=== PATIENT | female | born 1960 | race Caucasian/White ===

== ENCOUNTER → 2016-09-30 | Outpatient (CLI) | payer BC ==
[~2016-09-30] VITALS: Ht 165.1 cm; Wt 86.2 kg
[~2016-09-30] MED LIST: ASPI81TA85 PO; ATOR1TAB19 PO; IBUP600T26 PO; LEVA12INH INH; LIDOCAINE 2% INJ 100 MG/5 ML SDV (FOR ANES.) As Ordered ONE; NS 1,000 ML IV SCH; PROPOFOL 200 MG/20 ML VIAL As Ordered ONE; SYMB16INH INH; TIOT18INH INH; TRIA37.53 PO; TRIAPOW43 XX; VITA50003 PO
--- NOTE | 2016-09-30 07:53 | ROOR ---
Patient Name: Maritza Young Procedure Date: 09/30/2016 7:36 AM Date of : 1960 Age: 56 Room: [facility] Gender: Female Note Status: Finalized Procedure: Colonoscopy Indications: Screening for colorectal malignant neoplasm Providers: Dung Cantrell Jr, MD Referring MD: Jess ALVAREZ MD Requesting Provider: Medicines: Propofol per Anesthesia Complications: No immediate complications. Procedure: Pre-Anesthesia Assessment: - Prior to the procedure, a History and Physical was performed, and patient medications and allergies were reviewed. The patient is competent. The risks and benefits of the procedure and the sedation options and risks were discussed with the patient. All questions were answered and informed consent was obtained. Patient identification and proposed procedure were verified by the physician and the nurse in the pre-procedure area and in the procedure room. Mental Status Examination: alert and oriented. Airway Examination: normal oropharyngeal airway and neck mobility. Respiratory Examination: clear to auscultation. CV Examination: normal. ASA Grade Assessment: II - A patient with mild systemic disease. After reviewing the risks and benefits, the patient was deemed in satisfactory condition to undergo the procedure. The anesthesia plan was to use moderate sedation / analgesia (conscious sedation). Immediately prior to administration of medications, the patient was re-assessed for adequacy to receive sedatives. The heart rate, respiratory rate, oxygen saturations, blood pressure, adequacy of pulmonary ventilation, and response to care were monitored throughout the procedure. The physical status of the patient was re-assessed after the procedure. The Colonoscope was introduced through the anus and advanced to the cecum, identified by appendiceal orifice and ileocecal valve. The colonoscopy was performed without difficulty. The patient tolerated the procedure well. The quality of the bowel preparation was adequate and good. Findings: The perianal and digital rectal examinations were normal. Pertinent negatives include normal sphincter tone, no palpable rectal lesions and no anal lesion or abnormality was detected. A few small and large-mouthed diverticula were found in the sigmoid colon. The rectum, recto-sigmoid colon, descending colon, transverse colon, ascending colon, cecum, appendiceal orifice and ileocecal valve appeared normal. Impression: - Diverticulosis in the sigmoid colon. - The rectum, recto-sigmoid colon, descending colon, transverse colon, ascending colon, cecum, appendiceal orifice and ileocecal valve are normal. - No specimens collected. Recommendation: - Discharge patient to home (ambulatory). - Repeat colonoscopy in 10 years for screening purposes. Dung Cantrell MD Dung Cantrell Jr, MD 09/30/2016 7:53:15 AM This report has been signed electronically. Number of Addenda: 0 Note Initiated On: 09/30/2016 7:36 AM Estimated Blood Loss: Estimated blood loss: none.
[2016-09-30 08:08] VITALS: BP 116/68
== END ==
LOC: M OPP 06:50
PROVIDERS: ATTEND Surgery
DX: Z12.11 Encounter for screening for malignant neoplasm of colon (principal); K57.30 Diverticulosis of large intestine without perforation or abscess without bleeding; I10 Essential (primary) hypertension; J44.9 Chronic obstructive pulmonary disease, unspecified; J45.909 Unspecified asthma, uncomplicated; M79.7 Fibromyalgia; M54.2 Cervicalgia; Z87.891 Personal history of nicotine dependence; Z79.82 Long term (current) use of aspirin; Z79.899 Other long term (current) drug therapy; Z88.2 Allergy status to sulfonamides; Z88.5 Allergy status to narcotic agent

== ENCOUNTER → 2016-12-28 | Outpatient (REF) | payer BC ==
[~2016-12-28] MED LIST changes: -LIDOCAINE 2% INJ 100 MG/5 ML SDV (FOR ANES.) As Ordered ONE; -NS 1,000 ML IV SCH; -PROPOFOL 200 MG/20 ML VIAL As Ordered ONE
[2016-12-29 13:58] LABS: PERCENT SATURATION 29.5 % (13.2-37.4)
[2016-12-29 14:06] LABS: FOLATE 12.1 NG/ML
== END ==
LOC: M LAB REF 12:47
PROVIDERS: ATTEND Internal Medicine
DX: D64.9 Anemia, unspecified (principal)

== ENCOUNTER 2017-04-10 10:50 | Emergency (ER) | payer BC ==
[~2017-04-10] VITALS: Ht 165.1 cm; Wt 84.1 kg
[~2017-04-10 10:50] MED LIST changes: +IBUP-1022 PO; -IBUP600T26 PO; +VITA1CAP40 PO; -VITA50003 PO
--- NOTE | 2017-04-10 11:45 | REP ---
Clinical: Pain. Technique: AP, lateral, bilateral oblique and sunrise views. Findings: No acute fracture or dislocation. Lateral view cannot exclude small suprapatellar effusion. [place] view demonstrates fraying along the anterior margin of the patella. Impression: Mild degenerative changes. Signed by Juanjose Lucas MD 04/10/2017 11:37 A
[2017-04-10] MEDS ORDERED: TYLE325T5 PO (12:16)
[2017-04-10 12:28] VITALS: BP 138/77
[2017-04-10] MEDS ORDERED: KETOROLAC 30 MG/ML VIAL (J1885) IM ONE (12:30)
== END 2017-04-10 12:39 | disposition home or self-care (01) ==
LOC: M ED 10:50
DX: M25.562 Pain in left knee (principal); J44.9 Chronic obstructive pulmonary disease, unspecified; I10 Essential (primary) hypertension; J45.909 Unspecified asthma, uncomplicated; E78.00 Pure hypercholesterolemia, unspecified; K44.9 Diaphragmatic hernia without obstruction or gangrene; K21.9 Gastro-esophageal reflux disease without esophagitis; M54.9 Dorsalgia, unspecified; R51 Headache; Z87.891 Personal history of nicotine dependence; Z88.5 Allergy status to narcotic agent; Z88.2 Allergy status to sulfonamides; Z79.82 Long term (current) use of aspirin; Z79.899 Other long term (current) drug therapy; Z79.51 Long term (current) use of inhaled steroids

== ENCOUNTER → 2017-04-20 | Outpatient (REF) | payer BC ==
[~2017-04-20] MED LIST changes: +TYLE325T5 PO
[2017-04-20 18:34] LABS: BASO % 0.8 % (0.0-1.0); EOS # 0.1 K/mm3 (0.0-0.50); EOS % 1.3 % (0.0-3.0); LARGE UNSTAINED CELL # 0.1 K/mm3 (0.0-0.4); LARGE UNSTAINED CELL % 1.4 % (0.0-4.0); MEAN CORPUSCULAR HEMOGLOBIN 31.4 pg (27.0-33.0); MEAN CORPUSCULAR HGB CONC 35.2 g/dl (32.0-36.5); MEAN CORPUSCULAR VOLUME 89.3 fl (80.0-96.0); MONO # 0.2 K/mm3 (0.0-0.8); MONO % 3.6 % (0.0-5.0); NEUTROPHILS # 2.2 K/mm3 (1.8-7.7); NEUTROPHILS % 48.8 % (36.0-66.0); PLATELET COUNT, AUTOMATED 260 k/mm3 (150-450); WHITE BLOOD COUNT 4.6 K/mm3 (4.0-10.0)
[2017-04-20 18:51] LABS: URIC ACID 4.3 MG/DL (2.6-6.0)
[2017-04-20 20:14] LABS: ERYTHROCYTE SEDIMENTATION RATE 22 mm/hr (0-30)
[2017-04-23 00:06] LABS: Lyme Disease IgG/IgM Antibodie <0.91 ISR (0.00-0.90); Lyme Disease IgM Ab Quantitati <0.80 index (0.00-0.79)
== END ==
LOC: M LABDRAW1 14:38
PROVIDERS: ATTEND Physician Assistant Surgical
DX: S83.92XD Sprain of unspecified site of left knee, subsequent encounter (principal); X58.XXXD Exposure to other specified factors, subsequent encounter; Y92.9 Unspecified place or not applicable; Y93.9 Activity, unspecified; Y99.9 Unspecified external cause status

== ENCOUNTER → 2017-08-22 | Outpatient (CLI) | payer BC | LOC: M SMT 14:33 | DX: J45.51 Severe persistent asthma with (acute) exacerbation (principal) ==

== ENCOUNTER → 2017-08-29 | Outpatient (CLI) | payer BC ==
[2017-08-29 20:53] LABS: BASO # 0.1 10^3/uL (0.0-0.2); BASO % 0.9 % (0.0-1.0); EOS # 0.1 10^3/uL (0.0-0.50); EOS % 2.1 % (0.0-3.0); HEMATOCRIT 37.7 % (36.0-47.0); HEMOGLOBIN 12.6 g/dl (12.0-16.0); IMMATURE GRANULOCYTE % 0.3 % (0-0); LYMPH # 2.1 10^3/uL (1.5-4.5); LYMPH % 36.6 % (24.0-44.0); MEAN CORPUSCULAR HEMOGLOBIN 30.4 pg (27.0-33.0); MEAN CORPUSCULAR HGB CONC 33.4 g/dl (32.0-36.5); MEAN CORPUSCULAR VOLUME 91.1 fl (80.0-96.0); MONO # 0.5 10^3/uL (0.0-0.8); MONO % 7.7 % (0.0-5.0); NEUTROPHILS # 3.1 10^3/uL (1.8-7.7); NEUTROPHILS % 52.4 % (36.0-66.0); PLATELET COUNT, AUTOMATED 250 10^3/uL (150-450); RED BLOOD COUNT 4.14 10^6/uL (4.00-5.40); WHITE BLOOD COUNT 5.9 10^3/uL (4.0-10.0)
[2017-08-29 21:55] LABS: IMMUNOGLOBULIN E < 3.6 IU/ML (<100)
== END ==
LOC: M SMT 13:48
DX: J45.51 Severe persistent asthma with (acute) exacerbation (principal)
CPT/HCPCS: 82785

== ENCOUNTER → 2018-10-30 | Outpatient (CLI) | payer BC ==
[~2018-10-30] MED LIST changes: -VITA1CAP40 PO; +VITA50005 PO
--- NOTE | 2018-10-31 09:08 | REPMRS ---
Patient History The patient states she had a clinical breast exam in September 2018.Family history of breast cancer in maternal aunt. 3D TOMOSYNTHESIS WAS PERFORMED. Digital Mammo Screening Bilat: October 30, 2018 - Exam #: [id number] Bilateral CC and MLO view(s) were taken. Technologist: Shaina Blankenship, Technologist Prior study comparison: 2018, bilateral digital mammo screening bilat, performed at [facility]. FINDINGS: There are scattered fibroglandular densities. There has been no change in the appearance of the mammogram from the prior studies. There is a mild amount of residual fibroglandular tissue which is fairly symmetric. There is no interval development of dominant mass, architectural distortion, or clustered microcalcification suggestive of malignancy. Assessment: BI-RADS/ACR category 1 mammogram. Negative Mammogram. Recommendation Routine screening mammogram in 1 year (for women over age 40). This mammogram was interpreted with the aid of an FDA-approved computer-aided dectection system. Electronically Signed By: Jenaro Lamb MD 10/31/18 0908
== END ==
LOC: M RAD 16:47
PROVIDERS: ATTEND Internal Medicine
DX: Z12.31 Encounter for screening mammogram for malignant neoplasm of breast (principal)

== ENCOUNTER → 2018-11-09 | Outpatient (CLI) | payer BC ==
--- NOTE | 2018-11-10 01:09 | REP ---
Clinical: Persistent asthma . Comparison: 08/22/2017 . Technique: PA and lateral. Findings: The mediastinum and cardiac silhouette are normal. The lung isaac are clear and without acute consolidation, effusion, or pneumothorax. The skeletal structures are intact and normal. Impression: 1. No acute cardiopulmonary process. Electronically Signed by Juanjose Lucas MD 11/10/2018 01:00 A
== END ==
LOC: M RAD 17:44
PROVIDERS: ATTEND Internal Medicine Pulmonary Disease
DX: J45.50 Severe persistent asthma, uncomplicated (principal)

== ENCOUNTER → 2018-11-09 | Outpatient (REF) | payer BC ==
[2018-11-09 13:36] LABS: BASO # 0.1 10^3/uL (0.0-0.2); BASO % 0.9 % (0.0-1.0); EOS # 0.1 10^3/uL (0.0-0.50); EOS % 1.1 % (0.0-3.0); HEMATOCRIT 39.2 % (36.0-47.0); HEMOGLOBIN 13.3 g/dl (12.0-15.5); LYMPH # 2.2 10^3/uL (1.5-4.5); LYMPH % 40.5 % (24.0-44.0); MEAN CORPUSCULAR HEMOGLOBIN 30.4 pg (27.0-33.0); MEAN CORPUSCULAR HGB CONC 33.9 g/dl (32.0-36.5); MEAN CORPUSCULAR VOLUME 89.7 fl (80.0-96.0); MONO # 0.5 10^3/uL (0.0-0.8); NEUTROPHILS # 2.6 10^3/uL (1.8-7.7); NEUTROPHILS % 48.1 % (36.0-66.0); PLATELET COUNT, AUTOMATED 262 10^3/uL (150-450); RED BLOOD COUNT 4.37 10^6/uL (4.00-5.40); WHITE BLOOD COUNT 5.3 10^3/uL (4.0-10.0)
== END ==
LOC: M LAB REF 12:57
PROVIDERS: ATTEND Internal Medicine Pulmonary Disease
DX: J45.50 Severe persistent asthma, uncomplicated (principal); R06.02 Shortness of breath

== ENCOUNTER 2019-10-14 09:12 | Emergency (ER) | payer BC ==
[~2019-10-14] VITALS: Ht 157.5 cm; Wt 88.8 kg
[2019-10-14] MEDS ORDERED: MECL-58 (09:28)
[2019-10-14] MEDS ORDERED: CIPR500T3 (09:28)
[2019-10-14 10:12] LABS: BASO # 0.1 10^3/uL (0.0-0.2); BASO % 1.2 % (0.0-1.0); EOS # 0.1 10^3/uL (0.0-0.5); EOS % 1.6 % (0.0-3.0); HEMATOCRIT 39.9 % (36.0-47.0); HEMOGLOBIN 13.5 g/dl (12.0-15.5); LYMPH # 2.2 10^3/uL (1.5-5.0); LYMPH % 43.4 % (24.0-44.0); MEAN CORPUSCULAR HEMOGLOBIN 30.5 pg (27.0-33.0); MEAN CORPUSCULAR HGB CONC 33.8 g/dl (32.0-36.5); MEAN CORPUSCULAR VOLUME 90.1 fl (80.0-96.0); MONO # 0.4 10^3/uL (0.0-0.8); NEUTROPHILS # 2.3 10^3/uL (1.5-8.5); NEUTROPHILS % 46.4 % (36.0-66.0); PLATELET COUNT, AUTOMATED 245 10^3/uL (150-450); RED BLOOD COUNT 4.43 10^6/uL (4.00-5.40)
[2019-10-14] MEDS ORDERED: MEDR4PAK PO (12:12)
[2019-10-14 12:13] VITALS: BP 138/85
--- NOTE | 2019-10-14 15:50 | REP ---
REASON: Sinus problems and left ear pain. Standard maxillofacial CT was ordered and performed. The paranasal sinuses are clear. The osteomeatal complexes are patent. There is a tiny right middle turbinate montse bullosa. The imaged osseous structures are normal. There is a leftward nasal septal deviation. IMPRESSION: No acute abnormality. Findings as described above. Electronically Signed by Otto Alonzo DO 10/14/2019 04:03 P
== END 2019-10-14 12:23 | disposition home or self-care (01) ==
LOC: M ED 09:12
DX: H65.92 Unspecified nonsuppurative otitis media, left ear (principal); E78.00 Pure hypercholesterolemia, unspecified; I10 Essential (primary) hypertension; J44.9 Chronic obstructive pulmonary disease, unspecified; K21.9 Gastro-esophageal reflux disease without esophagitis; Z88.2 Allergy status to sulfonamides; Z88.5 Allergy status to narcotic agent; Z79.82 Long term (current) use of aspirin; Z79.899 Other long term (current) drug therapy

== ENCOUNTER → 2019-12-11 | Outpatient (CLI) | payer BC ==
[~2019-12-11] MED LIST changes: -ASPI81TA85 PO; +ASPI81TA86 PO; +AZIT500T5; +CIPR500T3; +DULO1CAP5; +FLUTISP; +MECL-58; +MEDR4PAK PO; +PRED20TA; +PRED20TA PO; +TRAM50TA2 PO
--- NOTE | 2019-12-11 16:59 | REPMRS ---
Patient History The patient states she had a clinical breast exam in October 2019. Family history of breast cancer in maternal aunt. Digital Woman Screen Mammo: December 11, 2019 - Exam #: [id number] Bilateral CC and MLO view(s) were taken. Technologist: Latoya Marrero, Technologist Prior study comparison: October 30, 2018, bilateral digital mammo screening bilat, performed at [facility]. 2017, bilateral digital mammo screening bilat, performed at [facility]. August 19, 2016, bilateral digital woman screen mammo, performed at [facility]. FINDINGS: There are scattered fibroglandular densities. The Volpara volumetric breast density category is:B. There is a 4 mm nodular neodensity in the posterior third of the right breast superiorly at approximately 12 o'clock position which merits further evaluation. There has been no other change in the appearance of the mammogram from the prior studies. There is a mild amount of scattered fibroglandular density which is fairly symmetric. There is no other interval development of dominant mass, architectural distortion, or grouped microcalcification suggestive of malignancy. 3-D tomosynthesis shows no additional findings. Assessment: BI-RADS/ACR category 0 mammogram, Incomplete: Need additional imaging evaluation and/or prior mammograms for comparison. Recommendation Ultrasound and special view mammogram of the right breast. This patient's Lifetime Breast Cancer Risk is estimated at 10.5 %. This mammogram was interpreted with the aid of an FDA-approved computer-aided dectection system. Electronically Signed By: Bao Styles MD 12/11/19 [id number]
== END ==
LOC: M WHC 15:36
PROVIDERS: ATTEND Internal Medicine
DX: Z12.31 Encounter for screening mammogram for malignant neoplasm of breast (principal); N63.15 Unspecified lump in the right breast, overlapping quadrants

== ENCOUNTER → 2019-12-22 | Outpatient (CLI) | payer BC ==
[~2019-12-22] MED LIST changes: +ASPI81TA85 PO; -ASPI81TA86 PO; -AZIT500T5; -DULO1CAP5; -FLUTISP; -PRED20TA; -PRED20TA PO; -TRAM50TA2 PO
[2019-12-22 14:28] LABS: BASO % 0.4 % (0.0-1.0); HEMATOCRIT 38.2 % (36.0-47.0); HEMOGLOBIN 12.8 g/dl (12.0-15.5); LYMPH # 1.7 10^3/uL (1.5-5.0); LYMPH % 21.9 % (24.0-44.0); MEAN CORPUSCULAR HEMOGLOBIN 30.3 pg (27.0-33.0); MEAN CORPUSCULAR HGB CONC 33.5 g/dl (32.0-36.5); MEAN CORPUSCULAR VOLUME 90.3 fl (80.0-96.0); MONO # 0.2 10^3/uL (0.0-0.8); NEUTROPHILS # 5.7 10^3/uL (1.5-8.5); NEUTROPHILS % 72.7 % (36.0-66.0); PLATELET COUNT, AUTOMATED 303 10^3/uL (150-450); RED BLOOD COUNT 4.23 10^6/uL (4.00-5.40); WHITE BLOOD COUNT 7.9 10^3/uL (4.0-10.0)
[2019-12-22 14:50] LABS: ERYTHROCYTE SEDIMENTATION RATE 14 mm/hr (0-30)
[2019-12-22 15:06] LABS: ALBUMIN 4.1 GM/DL (3.2-5.2); ALT/SGPT 43 U/L (12-78); BILIRUBIN,TOTAL 0.6 MG/DL (0.2-1.0); BLOOD UREA NITROGEN 31 MG/DL (7-18); CALCIUM LEVEL 9.3 MG/DL (8.5-10.1); CARBON DIOXIDE LEVEL 29 MEQ/L (21-32); CHLORIDE LEVEL 102 MEQ/L (98-107); CREATININE FOR GFR 1.14 MG/DL (0.55-1.30); GLOMERULAR FILTRATION RATE 52.3 (>51); GLUCOSE, FASTING 125 MG/DL (70-100); POTASSIUM SERUM 4.4 MEQ/L (3.5-5.1); RHEUMATOID FACTOR QUANT < 10.0 IU/ML (<15.0); SODIUM LEVEL 140 MEQ/L (136-145); THYROID STIMULATING HORMONE 0.585 uIU/ML (0.358-3.740)
[2019-12-25 10:10] LABS: TOTAL 25(OH) VITAMIN D 64.9 NG/ML (30.0-100.0)
[2019-12-26 15:07] LABS: ANTINUCLEAR ANTIBODIES DIRECT Negative (Negative)
== END ==
LOC: M LAB 13:56
PROVIDERS: ATTEND Psychiatry & Neurology Neurology
DX: R51 Headache (principal)

== ENCOUNTER → 2019-12-27 | Outpatient (CLI) | payer BC ==
--- NOTE | 2019-12-27 12:46 | REP ---
DIGITAL DIAGNOSTIC UNILATERAL RIGHT BREAST MAMMOGRAPHY WITH CAD, 3D TOMOGRAPHY, AND FOCUSED RIGHT BREAST SONOGRAPHY: HISTORY: Screening mammography December 11, 2019 was BIRADS category 0 incomplete because of a 4 mm nodular neodensity 12-o'clock position right breast. Diagnostic imaging was recommended. Comparison mammography is also reviewed from October 30, 2018 and September 16, 2017. MAMMOGRAPHIC FINDINGS: Magnified focal spot compression CC view confirms the presence of a 4 mm low density nodule posteriorly in the right central breast. The magnified focal spot compression MLO view demonstrates this density just in front of the pectoralis muscle. It overlies the pectoralis on the MLO view although this is less confidently identified. Nonmagnified 3D tomography true mediolateral view shows a rounded opacity adjacent to some vascular structures. No spiculation or microcalcification is seen. SONOGRAPHIC FINDINGS: This right breast sonography in the 12-o'clock position approximately 9 cm from the nipple demonstrates a 0.2 x 0.6 x 0.3 cm oval-shaped cyst with a septation. This does not appear suspicious. It is felt to account for the mammographic opacity. IMPRESSION: BIRADS 2: BI-RADS/ACR category 2 mammogram. Benign Findings. BIRADS category 2 benign findings. Small cyst seen at 12-o'clock position in the right breast. Repeat screening mammography recommended in 1 year. This mammogram was interpreted with the aid of an FDA-approved computer-aided detection system. The patient letter being requested is M1.
== END ==
LOC: M WHC 09:38
PROVIDERS: ATTEND Internal Medicine
DX: N60.01 Solitary cyst of right breast (principal)

== ENCOUNTER 2020-04-14 13:38 | Emergency (ER) | payer BC ==
[~2020-04-14] VITALS: Ht 160 cm; Wt 86.6 kg
[~2020-04-14 13:38] MED LIST changes: -ASPI81TA85 PO; +ASPI81TA86 PO
[2020-04-14] MEDS ORDERED: FLUTISP (13:47)
--- NOTE | 2020-04-14 14:34 | REPVR ---
PROCEDURE INFORMATION: Exam: XR Left Shoulder Exam date and time: 04/14/2020 2:18 PM Age: 59 years old Clinical indication: Injury or trauma; Fall; Initial encounter; Wound; Elbow; Left TECHNIQUE: Imaging protocol: XR Left shoulder. Views: 2 or more views. COMPARISON: No relevant prior studies available. FINDINGS: Bones/joints: No acute bony injury or malalignment. Soft tissues: Localized soft tissue contour irregularity superior to the acromioclavicular joint. No radiopaque foreign body. IMPRESSION: No acute bony injury or malalignment. Electronically signed by: Brennan Baez On 04/14/2020 14:34:42 PM
--- NOTE | 2020-04-14 14:35 | REPVR ---
PROCEDURE INFORMATION: Exam: XR Left Humerus Exam date and time: 04/14/2020 2:18 PM Age: 59 years old Clinical indication: Injury or trauma; Fall; Initial encounter; Wound; Elbow; Left TECHNIQUE: Imaging protocol: XR Left humerus Views: 2 or more views. COMPARISON: No relevant prior studies available. FINDINGS: Bones/joints: No acute bony injury or malalignment in the visualized left humerus. Soft tissues: No radiopaque foreign body. IMPRESSION: No acute bony injury or malalignment in the visualized left humerus. Electronically signed by: Brennan Baez On 04/14/2020 14:35:24 PM
--- NOTE | 2020-04-14 14:36 | REPVR ---
PROCEDURE INFORMATION: Exam: XR Left Wrist Exam date and time: 04/14/2020 2:19 PM Age: 59 years old Clinical indication: Injury or trauma; Fall; Initial encounter; Wound; Elbow; Left TECHNIQUE: Imaging protocol: XR Left wrist. Views: 3 or more views. COMPARISON: No relevant prior studies available. FINDINGS: Bones/joints: No acute bony injury or malalignment in the left wrist. Degenerative change, greatest severity involving the 1st carpometacarpal joint. Soft tissues: No radiopaque foreign body. IMPRESSION: No acute bony injury or malalignment in the left wrist. Electronically signed by: Brennan Baez On 04/14/2020 14:36:46 PM
--- NOTE | 2020-04-14 14:37 | REPVR ---
PROCEDURE INFORMATION: Exam: XR Left Elbow Exam date and time: 04/14/2020 2:19 PM Age: 59 years old Clinical indication: Injury or trauma; Fall; Initial encounter; Wound; Elbow; Left TECHNIQUE: Imaging protocol: XR Left elbow. Views: 3 or more views. COMPARISON: No relevant prior studies available. FINDINGS: Bones/joints: Acute radial neck fracture. Soft tissues: Assessment of expected fat pad displacement and hemarthrosis is limited in the absence of a true lateral view. Subcentimeter soft tissue calcifications. IMPRESSION: Acute radial neck fracture. Electronically signed by: Brennan Baez On 04/14/2020 14:37:48 PM
[2020-04-14] MEDS ORDERED: KETOROLAC 60MG 2ML VIAL IM ONE (15:15)
[2020-04-14] MEDS ORDERED: TRAM50TA2 PO (15:37)
[2020-04-14] MEDS ORDERED: traMADol 50 MG TAB PO ONE (15:45)
[2020-04-14 15:49] VITALS: BP 163/99
== END 2020-04-14 16:05 | disposition home or self-care (01) ==
LOC: M ED 13:38
DX: S50.812A Abrasion of left forearm, initial encounter (principal); S52.132A Displaced fracture of neck of left radius, initial encounter for closed fracture; W11.XXXA Fall on and from ladder, initial encounter; Y92.009 Unspecified place in unspecified non-institutional (private) residence as the place of occurrence of the external cause; Y93.89 Activity, other specified; Y99.8 Other external cause status; I10 Essential (primary) hypertension; J44.9 Chronic obstructive pulmonary disease, unspecified; E78.5 Hyperlipidemia, unspecified; Z79.82 Long term (current) use of aspirin; Z88.2 Allergy status to sulfonamides; Z88.5 Allergy status to narcotic agent
CPT/HCPCS: 29105; 73030; 73060; 73080; 73110; 96372; 99284; J1885

== ENCOUNTER → 2020-07-31 | Outpatient (REF) | payer BC ==
[~2020-07-31] MED LIST changes: +AZIT500T5; +DULO1CAP5; +FLUTISP; +PRED20TA; +PRED20TA PO; +TRAM50TA2 PO
[2020-08-05 00:10] LABS: ANTINUCLEAR ANTIBODIES DIRECT Negative (Negative); CYCLIC CITRULLINATED PEPTIDE 5 units (0-19)
== END ==
LOC: M LAB REF 12:06
PROVIDERS: ATTEND Internal Medicine
DX: M25.50 Pain in unspecified joint (principal)

== ENCOUNTER 2020-08-02 05:51 | Emergency (ER) | payer BC ==
[~2020-08-02] VITALS: Ht 162.6 cm; Wt 88.7 kg
[~2020-08-02 05:51] MED LIST changes: -AZIT500T5; -DULO1CAP5; -PRED20TA; -PRED20TA PO
[2020-08-02] MEDS ORDERED: PRED20TA (06:04)
[2020-08-02] MEDS ORDERED: DULO1CAP5 (06:04)
[2020-08-02] MEDS ORDERED: AZIT500T5 (06:04)
[2020-08-02 06:59] LABS: BASO # 0.1 10^3/uL (0.0-0.2); BASO % 0.6 % (0.0-1.0); EOS # 0.1 10^3/uL (0.0-0.5); EOS % 0.8 % (0.0-3.0); HEMATOCRIT 37.7 % (36.0-47.0); HEMOGLOBIN 11.9 g/dl (12.0-15.5); LYMPH # 3.2 10^3/uL (1.5-5.0); LYMPH % 37.5 % (24.0-44.0); MEAN CORPUSCULAR HGB CONC 31.6 g/dl (32.0-36.5); MEAN CORPUSCULAR VOLUME 91.7 fl (80.0-96.0); MONO # 0.5 10^3/uL (0.0-0.8); MONO % 5.2 % (0.0-5.0); NEUTROPHILS # 4.8 10^3/uL (1.5-8.5); NEUTROPHILS % 55.2 % (36.0-66.0); PLATELET COUNT, AUTOMATED 254 10^3/uL (150-450); RED BLOOD COUNT 4.11 10^6/uL (4.00-5.40); WHITE BLOOD COUNT 8.6 10^3/uL (4.0-10.0)
[2020-08-02] MEDS ORDERED: COMBIVENT RESPIMAT 100-20MCG INHALER 4GM INH STA (07:07)
[2020-08-02 07:32] LABS: ALBUMIN 3.6 GM/DL (3.2-5.2); ALT/SGPT 45 U/L (12-78); BILIRUBIN,DIRECT 0.1 MG/DL (0.0-0.2); BILIRUBIN,TOTAL 0.5 MG/DL (0.2-1.0); BLOOD UREA NITROGEN 21 MG/DL (7-18); CARBON DIOXIDE LEVEL 28 MEQ/L (21-32); CHLORIDE LEVEL 107 MEQ/L (98-107); CPK CREATINE PHOSPHOKINASE 75 U/L (26-192); CREATININE FOR GFR 0.97 MG/DL (0.55-1.30); GLOMERULAR FILTRATION RATE > 60.0 (>51); GLUCOSE, FASTING 84 MG/DL (70-100); LIPASE 172 U/L (73-393); MB/CK RELATIVE INDEX 1.33 (< OR =4); POTASSIUM SERUM 3.9 MEQ/L (3.5-5.1); SODIUM LEVEL 141 MEQ/L (136-145); TOTAL PROTEIN 7.5 GM/DL (6.4-8.2); TROPONIN I < 0.02 NG/ML (< 0.10)
[2020-08-02] MEDS ORDERED: NS 1,000 ML IV ONE (07:45)
--- NOTE | 2020-08-02 07:59 | REP ---
INDICATION: cough, wheezing since Tuesday COMPARISON: 11/09/2018 TECHNIQUE: PA and lateral. FINDINGS: The mediastinum and cardiac silhouette are normal. Trace left basilar atelectasis cannot be excluded and should be correlated with auscultation. No focal consolidation, effusion, or pneumothorax. Skeletal structures intact. IMPRESSION: Possible trace left basilar atelectasis. No focal consolidation or effusion. <Electronically signed by Juanjose Lucas > 08/02/20 [id number]
--- NOTE | 2020-08-02 08:31 | REPVR ---
PROCEDURE INFORMATION: Exam: US Abdomen, Limited; Right Upper Quadrant Exam date and time: 08/02/20 (7:27am) Age: 60 years old Clinical indication: RUQ pain, radiating to right shoulder. Flank pain. TECHNIQUE: Imaging protocol: US abdomen. Real time ultrasound with image documentation. Limited examination focused on the right upper quadrant. COMPARISON: No relevant prior studies available FINDINGS: The liver is normal in size (17.0 cm length), with no focal lesions. Perhaps fatty infiltration. The gallbladder has normal wall thickness (1.7 mm), with no stones nor sludge seen. No pericholecystic fluid is appreciated. The CBD is mildly prominent (5.3 mm diameter). Visualized portions of the pancreas appear unremarkable (tail is obscured). The right kidney measures 9.9 cm in length, with no hydronephrosis appreciated. No ascites is seen. IMPRESSION: No acute pathology. The gallbladder is unremarkable, with no stones identified. The CBD is mildly prominent. No ductal stones are seen. The right kidney is normal in size, with no hydronephrosis noted. Electronically signed by: Jodie Nelson On 08/02/2020 08:31:56 AM
[2020-08-02] MEDS ORDERED: ISOVUE-370 76% 100ML VIAL As Ordered ONE (09:03)
[2020-08-02] MEDS ORDERED: methylPREDNISolone 125MG 2ML VIAL IV ONE (09:15)
--- NOTE | 2020-08-02 09:28 | ECGEPIP ---
[facility] - ED Test Date: 2020-08-02 Pat Name: NÉSTOR NUÑEZ Department: Room: - Gender: Female Plate Fitter: gabriela : 1960 Requested By: RAFA Chase Order Number: [id number] Reading MD: Niharika Holley Measurements Intervals Theodore Rate: 85 P: 27 OH: 144 QRS: -3 QRSD: 80 T: 3 QT: 339 QTc: 404 Interpretive Statements SINUS RHYTHM No prior Electronically Signed on 08-02-2020 9:28:39 EST by Niharika Holley
--- NOTE | 2020-08-02 09:33 | REP ---
INDICATION: short of breath, ro PE COMPARISON: None. TECHNIQUE: Axial contrast enhanced images from the thoracic inlet to the upper abdomen using pulmonary embolus technique with multiplanar re-formations. 75 ml Isovue 370 intravenous contrast material administered without complication. This CT examination was performed using the following dose reduction techniques: Automated exposure control, adjustment of mA and/or kv according to the patient's size, and use of iterative reconstruction technique. FINDINGS: Satisfactory enhancement of the pulmonary vasculature is achieved and no filling defects are identified to suggest pulmonary embolus. Further evaluation of the mediastinum demonstrates atherosclerotic changes to the coronary arteries with normal thoracic aorta, heart and pericardium. Lung isaac demonstrate mild left basilar atelectasis. No effusion. No pneumothorax. Tracheobronchial tree is patent. No adenopathy. Musculoskeletal structures are intact. IMPRESSION: No evidence for pulmonary embolus. Mild left lower lobe atelectasis. <Electronically signed by Juanjose Lucas > 08/02/20 0929
[2020-08-02] MEDS ORDERED: PRED20TA PO (09:38)
[2020-08-02 10:20] VITALS: BP 121/71
== END 2020-08-02 10:43 | disposition home or self-care (01) ==
LOC: M ED 05:51
DX: R05 Cough (principal); R06.02 Shortness of breath; M25.511 Pain in right shoulder; J45.40 Moderate persistent asthma, uncomplicated; J44.9 Chronic obstructive pulmonary disease, unspecified; I10 Essential (primary) hypertension; E78.5 Hyperlipidemia, unspecified; M79.7 Fibromyalgia; K21.9 Gastro-esophageal reflux disease without esophagitis; K44.9 Diaphragmatic hernia without obstruction or gangrene; Z87.891 Personal history of nicotine dependence; Z88.2 Allergy status to sulfonamides; Z88.5 Allergy status to narcotic agent; Z79.899 Other long term (current) drug therapy; Z79.52 Long term (current) use of systemic steroids; Z79.82 Long term (current) use of aspirin; Z79.2 Long term (current) use of antibiotics
CPT/HCPCS: 71046; 71275; 76705; 80048; 80076; 82550; 82553; 83690; 84484; 85025; 93005; 93041; 94664; 94760; 96374; 99285; J2930; Q9967

== ENCOUNTER → 2020-08-18 | Outpatient (CLI) | payer BC ==
[~2020-08-18] MED LIST changes: +AZIT500T5; +DULO1CAP5; +PRED20TA; +PRED20TA PO
[2020-08-18 07:29] LABS: ALBUMIN 3.8 GM/DL (3.2-5.2); BILIRUBIN,TOTAL 0.5 MG/DL (0.2-1.0); CALCIUM LEVEL 9.5 MG/DL (8.5-10.1); CHOLESTEROL RISK RATIO 2.985 (<5); CREATININE FOR GFR 1.07 MG/DL (0.55-1.30); GLOMERULAR FILTRATION RATE 56.1 (>51); POTASSIUM SERUM 3.7 MEQ/L (3.5-5.1); TOTAL PROTEIN 7.4 GM/DL (6.4-8.2)
== END ==
LOC: M LAB 06:30
PROVIDERS: ATTEND Internal Medicine
DX: E78.00 Pure hypercholesterolemia, unspecified (principal)

== ENCOUNTER → 2020-11-17 | Outpatient (REF) | payer BC ==
[2020-11-17 14:06] LABS: BASO # 0.1 10^3/uL (0.0-0.2); BASO % 1.1 % (0.0-1.0); EOS # 0.1 10^3/uL (0.0-0.5); EOS % 2.4 % (0.0-3.0); HEMATOCRIT 38.9 % (36.0-47.0); LYMPH % 42.4 % (24.0-44.0); MEAN CORPUSCULAR HEMOGLOBIN 30.2 pg (27.0-33.0); MEAN CORPUSCULAR HGB CONC 33.4 g/dl (32.0-36.5); MEAN CORPUSCULAR VOLUME 90.3 fl (80.0-96.0); MONO # 0.4 10^3/uL (0.0-0.8); NEUTROPHILS # 2.1 10^3/uL (1.5-8.5); NEUTROPHILS % 45.7 % (36.0-66.0); PLATELET COUNT, AUTOMATED 235 10^3/uL (150-450); RED BLOOD COUNT 4.31 10^6/uL (4.00-5.40); WHITE BLOOD COUNT 4.7 10^3/uL (4.0-10.0)
== END ==
LOC: M LAB REF 13:16
PROVIDERS: ATTEND Internal Medicine Pulmonary Disease
DX: J45.40 Moderate persistent asthma, uncomplicated (principal)

== ENCOUNTER → 2021-01-08 | Outpatient (CLI) | payer BC ==
--- NOTE | 2021-01-08 16:18 | REPMRS ---
Patient History The patient states she has not had a clinical breast exam in over a year. Family history of breast cancer in maternal aunt. Covid vaccine 08/2020 left arm, 09/2020 left arm, pt unable to remember exact dates. Patient states no breast complaints today. Patient has signed MRS History Sheet. Digital Woman Screen Mammo: January 08, 2021 - Exam #: [id number] Bilateral CC and MLO view(s) were taken. Technologist: RT Kristy Prior study comparison: December 27, 2019, right breast diagnostic unilateral mammo performed at [facility]. December 11, 2019, bilateral digital woman screen mammo performed at [facility]. FINDINGS: The breast tissue is heterogeneously dense. This may lower the sensitivity of mammography. Screening. Digital screening (2D) mammography was performed bilaterally in the CC and MLO projections. Additionally, breast tomosynthesis (3D mammography) was performed bilaterally in the CC and MLO projections. Todays exam was compared to the prior exam/exams. By history, the patient has no complaints of a palpable breast abnormality or other significant breast complaints. The breasts are unchanged in size and shapeOnce again, dense heterogenous fibroglandular elements are seen bilaterally in a stable appearing pattern but to such a degree that the sensitivity of the mammogram in detecting cancer is decreased.. There are no yakov-soft tissue densities or spiculated masses. There is no internal architectural distortion. There are no suspicious yakov-calcific clusters. Skin thickening or nipple retraction is not present. IMPRESSION: BI-RADS Category 2- Benign Findings. There is no evidence of malignant alteration of the breasts. Followup examination recommended in one year. The Volpara volumetric breast density category is C, the breasts are heterogenously dense which may obscure small masses. This mammogram was read with the assistance of Andel,an FDA approved computer aided detection system for mammography. The lifetime Tyrer-Cuzick score is 10.2 % Negative x-ray reports should not delay surgical consultation if a dominant or clinically suspicious mass is present. Not all breast cancers can be identified by mammography. Therefore, we recommend that you continue to perform regular breast self-examination and physical examination and then promptly contact your physician of any concerns or changes. Adenosis and dense breasts may obscure an underlying neoplasm. Assessment: BI-RADS/ACR category 2 mammogram. Benign Findings. Recommendation Routine screening mammogram of both breasts in 1 year. Electronically Signed By: Otto Alonzo DO 01/08/21 [id number]
== END ==
LOC: M WHC 14:53
PROVIDERS: ATTEND Internal Medicine
DX: Z12.31 Encounter for screening mammogram for malignant neoplasm of breast (principal)

== ENCOUNTER → 2021-01-26 | Outpatient (CLI) | payer BC ==
--- NOTE | 2021-01-27 11:56 | DEXAMM ---
INDICATION: SCR FOR OSTEOPOROSIS/Z13.820. COMPARISON: Comparison DEXA study May 31, 2014 and January 03, 2003.. TECHNIQUE: Bone density was measured using dual-energy x-ray absorptionmetry (DEXA). FINDINGS: AP SPINE L1-L4 BMD 1.157 g/cm2 Young Adult T-Score -0.3 Age Matched Z-Score 0.8. LT FEMUR, TOTAL BMD is 1.005 g/cm2 Young Adult T-Score 0.0 Age Matched Z-Score 0.8. LT NECK BMD 0.866 g/cm2 Young Adult T-Score -1.2 Age Matched Z-Score -0.1. RT FEMUR, TOTAL BMD 0.984 g/cm2 Young Adult T-Score -0.2 Age Matched Z-Score 0.7. RT NECK BMD 0.816 g/cm2 Young Adult T-Score -1.6 Age Matched Z-Score -0.4. IMPRESSION: There is normal bone density of the spine. There is low bone density of the left hip. There is low bone density of the right hip. The density of the spine has increased 1.0% since the initial exam on January 03, 2003. The density of the spine decreased 1.4% since most recent exam on May 31, 2014. The density of the left hip has decreased 6.3% since initial exam on January 03, 2003. The density of the left hip has decreased 1.7% since most recent exam on May 31, 2014. The density of the right hip has decreased 5.1% since the initial exam on January 03, 2003. The density of the right hip has decreased 1.5 per since the most recent exam on and May 31, 2014. FOLLOW-UP: Recommendation for the next bone density exam: 2 years. <Electronically signed by Bao Styles > 01/27/21 [id number]
== END ==
LOC: M WHC 16:30
PROVIDERS: ATTEND Internal Medicine
DX: Z13.820 Encounter for screening for osteoporosis (principal); M81.0 Age-related osteoporosis without current pathological fracture

== ENCOUNTER → 2021-03-27 | Outpatient (CLI) | payer BC ==
--- NOTE | 2021-03-27 09:25 | REP ---
INDICATION: PAIN IN LT ANKLE AND JOINT LT FOOT. NO HISTORY OF TRAUMA COMPARISON: None. TECHNIQUE: Three views FINDINGS: The joint spaces are symmetric and relatively well maintained. There is no acute fracture, dislocation, or subluxation. There are plantar and retrocalcaneal heel spurs. There is a tiny ossific density seen just proximal to the medial proximal navicular possibly representing an old injury or minimal type 1 os naviculare. IMPRESSION: No acute abnormality is noted. Findings as described above. <Electronically signed by Otto Alonzo > 03/27/21 [id number]
== END ==
LOC: M SOG 08:55
PROVIDERS: ATTEND Orthopaedic Surgery Sports Medicine
DX: M25.572 Pain in left ankle and joints of left foot (principal)

== ENCOUNTER → 2021-04-29 | Outpatient (REF) | payer BC ==
[2021-04-29 22:52] LABS: APPEARANCE, URINE CLEAR (CLEAR); BACTERIA, URINE AUTO NEGATIVE (NEGATIVE); BILIRUBIN, URINE AUTO NEGATIVE (NEGATIVE); BLOOD, URINE BLOOD NEGATIVE (NEGATIVE); COLOR, URINE STRAW (YELLOW); GLUCOSE, URINE (UA) AUTO NEGATIVE (NEGATIVE); KETONE, URINE AUTO NEGATIVE (NEGATIVE); LEUKOCYTE ESTERASE, URINE AUTO 2+ (NEGATIVE); NITRITE, URINE AUTO NEGATIVE (NEGATIVE); PROTEIN, URINE AUTO NEGATIVE (NEGATIVE); RBC, URINE AUTO 1 /HPF (0-3); SPECIFIC GRAVITY URINE AUTO 1.009 (1.002-1.035); SQUAMOUS EPITHELIAL CELL UR AU 1 /HPF (0-6); UROBILINOGEN, URINE AUTO 0.2 mg/dL (0.0-2.0); WBC, URINE AUTO 7 /HPF (0-3)
== END ==
LOC: M LAB REF 21:39
PROVIDERS: ATTEND Physician Assistant
DX: N39.0 Urinary tract infection, site not specified (principal)

== ENCOUNTER → 2021-06-24 | Outpatient (CLI) | payer BC ==
--- NOTE | 2021-06-29 08:26 | REP ---
INDICATION: F/U RT BREAST CYST, PAIN. COMPARISON: 12/27/2019. TECHNIQUE: Real-time sonographic evaluation of right breast performed. FINDINGS: In the right breast at 12 o'clock a small cystic structure is again visualized measuring 3 x 2 x 8 mm. This is essentially unchanged when compared to the prior study. IMPRESSION: BIRADS/ACR category 2, benign. Stable cystic structure 12 o'clock right breast. RECOMMENDATION: Recommend follow-up bilateral mammogram December 2021. <Electronically signed by Jenaro Lamb > 06/29/21 0836
== END ==
LOC: M RAD 16:40
PROVIDERS: ATTEND Internal Medicine
DX: N60.01 Solitary cyst of right breast (principal)

== ENCOUNTER 2021-11-24 16:37 | Emergency (ER) | payer BC ==
[~2021-11-24] VITALS: Ht 165.1 cm; Wt 86.4 kg
[2021-11-24] MEDS ORDERED: ROSU5TAB5 (16:51)
[2021-11-24] MEDS ORDERED: ACETAMINOPHEN 500 MG TAB PO ONE (17:10)
[2021-11-24] MEDS ORDERED: LIDOCAINE 5% (LIDODERM) PATCH TD ONE (17:10)
[2021-11-24] MEDS ORDERED: ASPE4PAD TOP (19:29)
[2021-11-24] MEDS ORDERED: METH-1165 PO (19:29)
[2021-11-24 19:39] VITALS: BP 138/94
[2021-11-24] MEDS ORDERED: **NOTE PATIENT COMMENT** MISC XX SCH (21:00)
== END 2021-11-24 21:04 | disposition home or self-care (01) ==
LOC: M ED 16:37
DX: M54.50 Low back pain, unspecified (principal); M25.571 Pain in right ankle and joints of right foot; M79.651 Pain in right thigh; W10.8XXA Fall (on) (from) other stairs and steps, initial encounter; Y92.098 Other place in other non-institutional residence as the place of occurrence of the external cause; Y93.89 Activity, other specified; Y99.8 Other external cause status; I10 Essential (primary) hypertension; E78.5 Hyperlipidemia, unspecified; J44.9 Chronic obstructive pulmonary disease, unspecified; R51.9 Headache, unspecified; K21.9 Gastro-esophageal reflux disease without esophagitis; Z88.2 Allergy status to sulfonamides; Z88.5 Allergy status to narcotic agent; Z79.899 Other long term (current) drug therapy; Z79.82 Long term (current) use of aspirin; Z79.51 Long term (current) use of inhaled steroids

== ENCOUNTER → 2022-01-26 | Outpatient (CLI) | payer BC ==
[~2022-01-26] MED LIST changes: +ASPE4PAD TOP; +METH-1165 PO; +ROSU5TAB5; -TRIA37.53 PO; +TRIA37.577 PO
== END ==
LOC: M WHC 06:33
PROVIDERS: ATTEND Internal Medicine
DX: Z12.31 Encounter for screening mammogram for malignant neoplasm of breast (principal)

== ENCOUNTER → 2022-07-12 | Outpatient (CLI) | payer BC | LOC: M RAD 16:43 | PROVIDERS: ATTEND Internal Medicine Pulmonary Disease | DX: J45.40 Moderate persistent asthma, uncomplicated (principal) ==

== ENCOUNTER → 2022-08-19 | Outpatient (CLI) | payer BC | LOC: M SOG 09:07 | PROVIDERS: ATTEND Orthopaedic Surgery Adult Reconstructive Orthopaedic Surgery | DX: M25.561 Pain in right knee (principal) ==

== ENCOUNTER → 2022-11-15 | Outpatient (CLI) | payer BC ==
[~2022-11-15] MED LIST changes: +FLUT50SP17; -FLUTISP
[2022-11-15 18:02] LABS: BASO % 0.6 % (0.0-1.0); EOS # 0.1 10^3/uL (0.0-0.5); EOS % 1.6 % (0.0-3.0); HEMATOCRIT 37.8 % (36.0-47.0); HEMOGLOBIN 12.9 g/dl (12.0-15.5); LYMPH # 2.7 10^3/uL (1.5-5.0); MEAN CORPUSCULAR HEMOGLOBIN 30.6 pg (27.0-33.0); MEAN CORPUSCULAR HGB CONC 34.1 g/dl (32.0-36.5); MEAN CORPUSCULAR VOLUME 89.6 fl (80.0-96.0); MONO # 0.5 10^3/uL (0.0-0.8); MONO % 7.2 % (2.0-8.0); NEUTROPHILS % 47.3 % (36.0-66.0); PLATELET COUNT, AUTOMATED 239 10^3/uL (150-450); RED BLOOD COUNT 4.22 10^6/uL (4.00-5.40); WHITE BLOOD COUNT 6.3 10^3/uL (4.0-10.0)
== END ==
LOC: M LAB 17:01
PROVIDERS: ATTEND Internal Medicine Pulmonary Disease
DX: J45.51 Severe persistent asthma with (acute) exacerbation (principal)

== ENCOUNTER → 2023-02-08 | Outpatient (CLI) | payer BC | LOC: M WHC 16:31 | PROVIDERS: ATTEND Internal Medicine | DX: Z12.31 Encounter for screening mammogram for malignant neoplasm of breast (principal) ==

== ENCOUNTER → 2023-07-27 | Outpatient (REF) | payer BC ==
[~2023-07-27] MED LIST changes: -FLUT50SP17; +FLUTISP
== END ==
LOC: M SFHCDERM 13:57
PROVIDERS: ATTEND Physician Assistant
DX: C44.722 Squamous cell carcinoma of skin of right lower limb, including hip (principal)

== ENCOUNTER → 2023-11-04 | Outpatient (CLI) | payer BC | LOC: M WHC 09:12 | PROVIDERS: ATTEND Internal Medicine | DX: Z13.820 Encounter for screening for osteoporosis (principal) ==

== ENCOUNTER → 2023-11-30 | Outpatient (REF) | payer BC | LOC: M SFHCDERM 07:27 | PROVIDERS: ATTEND Physician Assistant | DX: T14.90XD Injury, unspecified, subsequent encounter (principal) ==

== ENCOUNTER → 2024-02-10 | Outpatient (CLI) | payer BC ==
[~2024-02-10] MED LIST changes: +ROSU5TAB40; -ROSU5TAB5
== END ==
LOC: M WHC 09:43
PROVIDERS: ATTEND Internal Medicine
DX: Z12.31 Encounter for screening mammogram for malignant neoplasm of breast (principal)

== ENCOUNTER → 2024-03-12 | Outpatient (CLI) | payer BC | LOC: M PLAIMG 09:40 | PROVIDERS: ATTEND Internal Medicine Pulmonary Disease | DX: J45.51 Severe persistent asthma with (acute) exacerbation (principal); R91.8 Other nonspecific abnormal finding of lung field ==

== ENCOUNTER 2024-04-25 12:02 | Inpatient (IN) | payer BC ==
[~2024-04-25] VITALS: Ht 162.6 cm; Wt 84.5 kg
[~2024-04-25 12:02] MED LIST changes: -ROSU5TAB40; +ROSU5TAB40 PO
[2024-04-25 12:42] LABS: BASO # 0.1 10^3/uL (0.0-0.2); BASO % 0.4 % (0.0-1.0); EOS % 0.3 % (0.0-3.0); HEMATOCRIT 38.1 % (36.0-47.0); HEMOGLOBIN 12.9 g/dl (12.0-15.5); LYMPH # 1.8 10^3/uL (1.5-5.0); LYMPH % 14.4 % (24.0-44.0); MEAN CORPUSCULAR HGB CONC 33.9 g/dl (32.0-36.5); MEAN CORPUSCULAR VOLUME 88.6 fl (80.0-96.0); MONO # 0.6 10^3/uL (0.0-0.8); MONO % 4.9 % (2.0-8.0); NEUTROPHILS # 9.8 10^3/uL (1.5-8.5); NEUTROPHILS % 79.4 % (36.0-66.0); PLATELET COUNT, AUTOMATED 222 10^3/uL (150-450); WHITE BLOOD COUNT 12.3 10^3/uL (4.0-10.0)
[2024-04-25 12:58] LABS: CK-MB VALUE MASS < 1.0 NG/ML (<3.6)
[2024-04-25 13:00] LABS: ALBUMIN 4.1 G/DL (3.2-5.2); ALKALINE PHOSPHATASE 73 U/L (46-116); ALT/SGPT 27 U/L (7.0-40); AST/SGOT 23 U/L (<34); BILIRUBIN,DIRECT 0.3 MG/DL (<0.4); BLOOD UREA NITROGEN 19 MG/DL (9-23); CALCIUM LEVEL 10.2 MG/DL (8.3-10.6); CARBON DIOXIDE LEVEL 30 MMOL/L (20-31); CHLORIDE LEVEL 104 MMOL/L (98-107); CPK CREATINE PHOSPHOKINASE 117 U/L (34-145); CREATININE FOR GFR 0.96 MG/DL (0.55-1.30); GLOMERULAR FILTRATION RATE > 60.0 (>45); GLUCOSE, FASTING 93 MG/DL (74-106); MB/CK RELATIVE INDEX 0.85 (< OR =4); POTASSIUM SERUM 3.8 MMOL/L (3.5-5.1); SODIUM LEVEL 138 MMOL/L (136-145); TOTAL PROTEIN 7.9 G/DL (5.7-8.2)
[2024-04-25 13:03] LABS: INR 1.01; PARTIAL THROMBOPLASTIN TIME 27.1 SECONDS (24.8-34.2)
[2024-04-25 14:02] LABS: CK-MB VALUE MASS < 1.0 NG/ML (<3.6)
[2024-04-25 14:04] LABS: CPK CREATINE PHOSPHOKINASE 127 U/L (34-145); MB/CK RELATIVE INDEX 0.78 (< OR =4)
[2024-04-25] MEDS: IBUPROFEN 600MG TAB PO ONE (14:16)
[2024-04-25] MEDS: NS 1,000 ML IV ONE (14:54)
[2024-04-25] MEDS: ONDANSETRON 4MG 2ML VIAL IV ONE (14:54)
[2024-04-25] MEDS: cefTRIAXone SOD 2 GM in D5W MINI-BAG PLUS 50 ML IV ONE (15:09)
[2024-04-25] MEDS ORDERED: ISOVUE-370 76% 100ML VIAL As Ordered ONE (15:10)
[2024-04-25] MEDS ORDERED: SPIR12.9 INH (16:23)
[2024-04-25] MEDS: DOXYCYCLINE HYCLATE 100MG TABLET PO ONE (16:23)
[2024-04-25] MEDS ORDERED: METH-1165 PO (16:23)
[2024-04-25] MEDS ORDERED: ASPI81TA26 PO (16:23)
[2024-04-25] MEDS ORDERED: LEVA1.2525 INH (16:23)
[2024-04-25] MEDS ORDERED: APAP325T4 PO (16:23)
[2024-04-25] MEDS ORDERED: ERGO500029 PO (16:24)
[2024-04-25] MEDS: NS 1,540 ML in IV 1 EA IV ONE (16:25)
[2024-04-25] MEDS ORDERED: HOME MED LIST COMPLETE! XX SCH (16:25)
[2024-04-25] MEDS ORDERED: PILL CUTTER 1 EACH XX PRN (20:05)
[2024-04-25] MEDS: BENZONATATE 100MG CAPSULE PO SCH (20:37)
[2024-04-25] MEDS: PERCOCET 5MG/325MG TAB PO PRN (20:37)
[2024-04-25] MEDS: DOXYCYCLINE HYCLATE 100MG TABLET PO SCH (20:38)
[2024-04-25] MEDS: SYMBICORT 160/4.5MCG INHALER 6GM INH SCH (22:13)
[2024-04-25] MEDS: IPRATROPIUM 0.5MG/ALBUTEROL 2.5MG INH SOL UD 3ML (DUONEB) NEB SCH (22:13)
[2024-04-25] MEDS: methocarbamoL 750 MG TAB PO PRN (22:21)
[2024-04-26] MEDS: ACETAMINOPHEN TAB 650MG DOSE (2X325MG) PO PRN (04:01)
[2024-04-26] MEDS: cefTRIAXone SOD 1 GM in D5W MINI-BAG PLUS 50 ML IV SCH (09:14)
[2024-04-26] MEDS: ENOXAPARIN 40MG/0.4ML SYRINGE (J1650 PER 10MG) SC SCH (09:15)
[2024-04-26] MEDS: ROSUVASTATIN 10 MG TAB (CRESTOR) PO SCH (09:15)
[2024-04-26] MEDS: ASPIRIN 81MG ENTERIC TABLET PO SCH (09:15)
[2024-04-26 13:07] LABS: HEMATOCRIT 35.2 % (36.0-47.0); HEMOGLOBIN 11.8 g/dl (12.0-15.5); MEAN CORPUSCULAR HEMOGLOBIN 29.9 pg (27.0-33.0); MEAN CORPUSCULAR HGB CONC 33.5 g/dl (32.0-36.5); MEAN CORPUSCULAR VOLUME 89.3 fl (80.0-96.0); PLATELET COUNT, AUTOMATED 177 10^3/uL (150-450); RED BLOOD COUNT 3.94 10^6/uL (4.00-5.40); WHITE BLOOD COUNT 10.7 10^3/uL (4.0-10.0)
[2024-04-26 13:32] LABS: BLOOD UREA NITROGEN 12 MG/DL (9-23); CARBON DIOXIDE LEVEL 30 MMOL/L (20-31); CHLORIDE LEVEL 108 MMOL/L (98-107); CREATININE FOR GFR 0.84 MG/DL (0.55-1.30); GLOMERULAR FILTRATION RATE > 60.0 (>45); GLUCOSE, FASTING 97 MG/DL (74-106); POTASSIUM SERUM 3.4 MMOL/L (3.5-5.1); SODIUM LEVEL 142 MMOL/L (136-145)
[2024-04-26 15:03] VITALS: BP 99/59; TEMP 97.7; O2SAT 97
[2024-04-26] MEDS: POTASSIUM CHLORIDE 10MEQ SR TABLET PO SCH (15:08)
[2024-04-26] MEDS: TIOTROPIUM INHALER/CAPSULE (SPIRIVA) INH SCH (15:23)
[2024-04-26 20:12] VITALS: BP 124/69; TEMP 97.5; O2SAT 96
[2024-04-26] MEDS ORDERED: MIRALAX *UNIT DOSE* 17GM PACKET PO PRN (21:30)
[2024-04-26] MEDS: DOCUSATE SODIUM 100MG CAPSULE PO SCH (21:47)
[2024-04-27 04:16] VITALS: BP 120/69; TEMP 97.2; O2SAT 98
[2024-04-27 08:40] LABS: HEMATOCRIT 34.6 % (36.0-47.0); HEMOGLOBIN 11.5 g/dl (12.0-15.5); MEAN CORPUSCULAR HEMOGLOBIN 29.9 pg (27.0-33.0); MEAN CORPUSCULAR HGB CONC 33.2 g/dl (32.0-36.5); MEAN CORPUSCULAR VOLUME 89.9 fl (80.0-96.0); PLATELET COUNT, AUTOMATED 211 10^3/uL (150-450); RED BLOOD COUNT 3.85 10^6/uL (4.00-5.40); WHITE BLOOD COUNT 8.1 10^3/uL (4.0-10.0)
[2024-04-27 09:07] LABS: BLOOD UREA NITROGEN 13 MG/DL (9-23); CALCIUM LEVEL 8.9 MG/DL (8.3-10.6); CARBON DIOXIDE LEVEL 26 MMOL/L (20-31); CHLORIDE LEVEL 107 MMOL/L (98-107); CREATININE FOR GFR 0.86 MG/DL (0.55-1.30); GLOMERULAR FILTRATION RATE > 60.0 (>45); GLUCOSE, FASTING 92 MG/DL (74-106); MAGNESIUM LEVEL 1.8 MG/DL (1.8-2.4); POTASSIUM SERUM 4.1 MMOL/L (3.5-5.1); SODIUM LEVEL 138 MMOL/L (136-145)
[2024-04-27] MEDS: guaiFENesin ER TABLET 600 MG TAB PO SCH (11:00)
[2024-04-27] MEDS: predniSONE 20 MG TAB PO SCH (11:00)
[2024-04-27] MEDS: POTASSIUM CHLORIDE 10MEQ SR TABLET PO SCH (11:00)
[2024-04-27 12:00] VITALS: BP 117/71; TEMP 97; O2SAT 97
[2024-04-27] MEDS ORDERED: BENZ-18 PO (12:19)
[2024-04-27] MEDS ORDERED: MUCI600T31 PO (12:19)
[2024-04-27] MEDS ORDERED: DOXY100T PO (12:19)
[2024-04-27] MEDS ORDERED: PRED20TA PO (12:19)
[2024-04-27] MEDS ORDERED: CEFD1CAP9 PO (12:21)
[2024-04-29] MEDS ORDERED: VITAMIN D 50,000 UNITS CAPSULE (ERGOCALCIFEROL 1.25MG) PO SCH (09:00)
== END 2024-04-27 15:00 | disposition home or self-care (01) | DRG 139 ==
LOC: M ED 12:02 → M ED INP 20:01 → M MSPAV 04-26 14:59
PROVIDERS: ADMIT Internal Medicine; ATTEND Hospitalist
DX: J18.9 Pneumonia, unspecified organism (principal); I10 Essential (primary) hypertension; J45.50 Severe persistent asthma, uncomplicated; M54.9 Dorsalgia, unspecified; E55.9 Vitamin D deficiency, unspecified; E78.5 Hyperlipidemia, unspecified; E87.6 Hypokalemia; G89.29 Other chronic pain; K59.00 Constipation, unspecified; Z85.828 Personal history of other malignant neoplasm of skin; Z88.5 Allergy status to narcotic agent; Z79.82 Long term (current) use of aspirin; Z88.1 Allergy status to other antibiotic agents; Z79.899 Other long term (current) drug therapy; Z88.2 Allergy status to sulfonamides

== ENCOUNTER → 2024-06-04 | Outpatient (CLI) | payer BC ==
[~2024-06-04] MED LIST changes: +APAP325T4 PO; +ASPI81TA26 PO; +BENZ-18 PO; +CEFD1CAP9 PO; +DOXY100T PO; +ERGO500029 PO; +LEVA1.2525 INH; +MUCI600T31 PO; +SPIR12.9 INH
== END ==
LOC: M PLAIMG 08:59
PROVIDERS: ATTEND Internal Medicine Pulmonary Disease
DX: J45.909 Unspecified asthma, uncomplicated (principal)

== ENCOUNTER → 2024-08-24 | Outpatient (CLI) | payer BC ==
[~2024-08-24] MED LIST changes: -ROSU5TAB40 PO; +ROSU5TAB49 PO
== END ==
LOC: M SOG 07:55
PROVIDERS: ATTEND Physician Assistant
DX: M18.12 Unilateral primary osteoarthritis of first carpometacarpal joint, left hand (principal); M79.642 Pain in left hand

== ENCOUNTER → 2024-09-26 | Outpatient (REF) | payer BC ==
[~2024-09-26] MED LIST changes: +IBUP1TAB6 PO; +MONT-5 PO; +VENTAER INH
== END ==
LOC: M LAB REF 16:30
PROVIDERS: ATTEND Internal Medicine
DX: E83.52 Hypercalcemia (principal)

== ENCOUNTER 2024-10-01 09:59 | Day surgery (SDC) | payer BC ==
[~2024-10-01] VITALS: Ht 157.5 cm; Wt 84.5 kg
[2024-10-01] MEDS ORDERED: MIDAZOLAM INJ 2MG/2ML VIAL IV PRN (11:50)
[2024-10-01] MEDS ORDERED: fentaNYL 100 MCG/2 ML INJECTION IV PRN ×2 (11:50→14:15)
[2024-10-01] MEDS ORDERED: LR 1,000 ML IV SCH ×2 (12:20→14:15)
[2024-10-01] MEDS: ROPIvacaine 0.5% 30ML VIAL PN ONE (12:30)
[2024-10-01] MEDS: LIDOCAINE 1% SDV 5ML VIAL PN ONE (12:30)
[2024-10-01] MEDS: dexAMETHasone 10MG/1ML VIAL PRES.FREE PN ONE (12:30)
[2024-10-01] MEDS: ceFAZolin SOD 2 GM in IV 1 EA IV ONE (12:40)
[2024-10-01] MEDS ORDERED: propofoL 200 MG/20 ML VIAL As Ordered ONE (12:49)
[2024-10-01] MEDS ORDERED: fentaNYL 100 MCG/2 ML INJECTION As Ordered ONE (12:49)
[2024-10-01] MEDS ORDERED: LIDOCAINE 2% 100MG/5ML SDV (FOR ANES.) As Ordered ONE (12:49)
[2024-10-01] MEDS ORDERED: ONDANSETRON 4MG 2ML VIAL As Ordered ONE (12:49)
[2024-10-01] MEDS ORDERED: MIDAZOLAM INJ 2MG/2ML VIAL As Ordered ONE (12:49)
[2024-10-01] MEDS ORDERED: ACETAMINOPHEN 1000MG/100ML IV BAG As Ordered ONE (13:11)
[2024-10-01] MEDS: BACITRACIN OINTMENT 30GM TUBE As Ordered ONE (13:14)
[2024-10-01] MEDS ORDERED: METOCLOPRAMIDE INJ 10MG/2ML VIAL As Ordered ONE (13:31)
[2024-10-01] MEDS ORDERED: HYDROMORPHONE HCL 0.5 MG/ 0.5 ML SYRINGE IV PRN (14:15)
[2024-10-01] MEDS ORDERED: oxyCODONE 5MG TAB PO PRN (14:15)
[2024-10-01] MEDS ORDERED: ONDANSETRON 4MG 2ML VIAL IV PRN (14:15)
[2024-10-01] MEDS ORDERED: PERC5TAB12 PO (14:33)
[2024-10-01] MEDS ORDERED: ADVAIR HFA 115/21MCG INHALER INH STA (14:56)
[2024-10-01] MEDS: LEVALBUTEROL 1.25MG 0.5ML CONCENTRATE NEB INH ONE (15:01)
[2024-10-01] MEDS: ADVAIR HFA 115/21MCG INHALER INH ONE (15:10)
[2024-10-01 15:41] VITALS: BP 128/65; TEMP 97.5; O2SAT 98
== END 2024-10-01 15:55 | disposition home or self-care (01) ==
LOC: M SDC 09:59
PROVIDERS: ATTEND Orthopaedic Surgery Hand Surgery
DX: M18.12 Unilateral primary osteoarthritis of first carpometacarpal joint, left hand (principal); Z88.1 Allergy status to other antibiotic agents; Z88.5 Allergy status to narcotic agent; Z88.2 Allergy status to sulfonamides; Z79.899 Other long term (current) drug therapy; Z79.82 Long term (current) use of aspirin; Z79.51 Long term (current) use of inhaled steroids
CPT/HCPCS: 25447; 76000; C1713; J0131; J0690; J1100; J2250; J2405; J2765; J2795; J3010

== ENCOUNTER → 2024-10-12 | Outpatient (CLI) | payer BC ==
[~2024-10-12] MED LIST changes: +PERC5TAB12 PO
== END ==
LOC: M SOG 07:52
PROVIDERS: ATTEND Physician Assistant
DX: M79.645 Pain in left finger(s) (principal)

== ENCOUNTER → 2024-11-14 | Outpatient (CLI) | payer BC | LOC: M SOG 08:35 | PROVIDERS: ATTEND Physician Assistant | DX: M79.645 Pain in left finger(s) (principal) ==

== ENCOUNTER → 2025-02-20 | Outpatient (CLI) | payer BC | LOC: M WHC 16:03 | PROVIDERS: ATTEND Internal Medicine | DX: Z12.31 Encounter for screening mammogram for malignant neoplasm of breast (principal) ==

== ENCOUNTER → 2025-07-30 | Outpatient (REF) | payer BC ==
[~2025-07-30] MED LIST changes: -IBUP-1022 PO; -IBUP1TAB6 PO; +IBUP600T42 PO; +SFHIBU600 PO
[2025-07-30 18:13] LABS: VITAMIN B12 LEVEL 489 PG/ML (211-911)
[2025-07-30 18:15] LABS: C REACTIVE PROTEIN QUANTITATIV < 0.50 MG/DL (<1.0)
== END ==
LOC: M LAB REF 17:12
PROVIDERS: ATTEND Internal Medicine
DX: R42 Dizziness and giddiness (principal)